=== PATIENT | male | born 1960 | race Caucasian/White ===

== ENCOUNTER 2022-11-14 08:59 | Emergency (ER) | payer OTHER ==
[~2022-11-14] VITALS: Ht 170.2 cm; Wt 69.8 kg
[2022-11-14 09:12] VITALS: BP 105/71
[2022-11-14] MEDS ORDERED: Desyrel150 MG PO (09:15)
[2022-11-14] MEDS ORDERED: IBUP600 PO (09:37)
== END 2022-11-14 10:01 | disposition home or self-care (01) ==
LOC: ER 08:59
DX: G56.03 Carpal tunnel syndrome, bilateral upper limbs (principal); Z79.899 Other long term (current) drug therapy
CPT/HCPCS: 96372; 99283-25; A9270; J1885

== ENCOUNTER 2023-06-19 01:42 | Observation (INO) | payer OTHER ==
[~2023-06-19] VITALS: Ht 170.2 cm; Wt 68.0 kg
[~2023-06-19 01:42] MED LIST: Desyrel150 MG PO; IBUP600 PO
[2023-06-19 02:40] LABS: BASOPHILS ABSOLUTE AUTO 0.05 K/mm3 (0.00-0.23); BASOPHILS PERCENT AUTO 1 % (0-2); EOSINOPHILS ABSOLUTE AUTO 0.22 K/mm3 (0.00-0.68); EOSINOPHILS PERCENT AUTO 3 % (0-6); Hematocrit 39.9 % (37.0-53.0); Hemoglobin 13.5 g/dL (13.5-17.5); IMMATURE GRAN ABSOLUTE AUTO 0.06 K/mm3 (0.00-0.10); IMMATURE GRAN PERCENT AUTO 1 % (0-1); LYMPHOCYTES ABSOLUTE AUTO 2.65 K/mm3 (0.84-5.20); LYMPHOCYTES PERCENT AUTO 30 % (21-46); MONOCYTES ABSOLUTE AUTO 0.92 K/mm3 (0.16-1.47); MONOCYTES PERCENT AUTO 10 % (4-13); Mean Corpuscular HGB 33.8 pg (26.0-34.0); Mean Corpuscular HGB Conc 33.8 g/dL (31.5-36.5); Mean Corpuscular Volume 100 fL (80-100); Mean Platelet Volume 10.6 fL (9.1-12.4); NEUTROPHILS ABSOLUTE AUTO 5.07 K/mm3 (1.96-9.15); NEUTROPHILS PERCENT AUTO 56 % (41-73); Platelet Count 258 K/mm3 (150-400); RDW Coefficient Variation 13.2 % (11.7-14.2); RDW Standard Deviation 48.3 fL (35.1-46.3); White Blood Cell Count 8.97 K/mm3 (4.00-11.30)
[2023-06-19 03:01] LABS: Source, Urine Clean Catch
[2023-06-19 03:13] LABS: Ethanol (Alcohol), Blood, Med 152 mg/dL; Salicylate 2.3 mg/dL (2.8-20.0)
[2023-06-19 03:14] LABS: Alanine Aminotransfer (ALT/SGP 51 U/L (12-78); Albumin, Blood 3.8 g/dL (3.4-5.0); Alk Phos 73 U/L (50-136); Anion Gap 3 mmol/L (6-16); Aspartate Aminotrans (AST/SGOT 36 U/L (12-37); Bilirubin, Total 0.2 mg/dL (0.1-1.0); Blood Urea Nitrogen 16 mg/dL (8-24); Bun/Creatinine Ratio 21.2 (12.0-20.0); CO2, Blood 30 mmol/L (21-32); Calcium, Blood 8.7 mg/dL (8.5-10.1); Chloride, Blood 112 mmol/L (98-108); Creatinine, Blood 0.75 mg/dL (0.60-1.20); Globulin, Blood 3.8 g/dL (2.2-4.0); Glomerular Filtration Rate 102 (60-); Glucose, Blood 97 mg/dL (70-99); Potassium, Blood 4.9 mmol/L (3.5-5.5); Sodium, Blood 145 mmol/L (136-145); Total Protein, Blood 7.6 g/dL (6.4-8.2)
[2023-06-19 03:16] LABS: Acetaminophen, Random <2.0 ug/mL (10.0-30.0)
[2023-06-19 03:26] LABS: Bilirubin, Urine Neg (Neg); Blood, Urine Neg (Neg); Glucose Qualitative, Urine Neg (Neg); Ketones, Urine Neg (Neg); Leukocyte Esterase, Urine Neg (Neg); Nitrite, Urine Neg (Neg); Protein, Urine Neg (Neg); Urobilinogen, Urine NORM (Normal)
[2023-06-19 03:39] LABS: U Amphetamine Screen Not Detected; U Barbituate Screen Not Detected; U Benzodiazapine Screen Not Detected; U Buprenorphine Screen Not Detected; U Cannabinoids Screen DETECTED; U Cocaine Screen Not Detected; U Methadone Screen Not Detected; U Methamphetamine Screen Not Detected; U Opiates Screen Not Detected; U Oxycodone Screen Not Detected; U Phencyclidine Screen Not Detected
[2023-06-19 03:40] LABS: Appearance, Urine Clear (Clear); Color, Urine Yellow (P-Yellow)
[2023-06-19 21:46] VITALS: BP 132/78
== END 2023-06-19 23:18 | disposition short-term general hospital (02) ==
LOC: ER 01:42 → EOR 01:43
PROVIDERS: ADMIT Emergency Medicine
DX: F33.3 Major depressive disorder, recurrent, severe with psychotic symptoms (principal); R45.851 Suicidal ideations; F10.10 Alcohol abuse, uncomplicated
CPT/HCPCS: 36415; 80053; 81003; 84443; 85025; 86592; 93005; 93010; 99285-25; A9270; G0378; G0480

== ENCOUNTER 2024-11-19 23:20 | Inpatient (IN) | payer OTHER ==
[~2024-11-19] VITALS: Ht 170.2 cm; Wt 60.5 kg
[2024-11-19] MEDS ORDERED: Midazolam HCl 1MG / ML 2ML Vial IV SCH (23:35)
[2024-11-19] MEDS ORDERED: LORazepam 2 MG/ML 1ML Injection IV ONE (23:50)
[2024-11-19 23:51] LABS: BASOPHILS ABSOLUTE AUTO 0.03 K/mm3 (0.00-0.23); BASOPHILS PERCENT AUTO 0 % (0-2); EOSINOPHILS ABSOLUTE AUTO 0.25 K/mm3 (0.00-0.68); EOSINOPHILS PERCENT AUTO 3 % (0-6); Hematocrit 37.1 % (37.0-53.0); Hemoglobin 11.4 g/dL (13.5-17.5); IMMATURE GRAN ABSOLUTE AUTO 0.05 K/mm3 (0.00-0.10); IMMATURE GRAN PERCENT AUTO 1 % (0-1); LYMPHOCYTES ABSOLUTE AUTO 2.32 K/mm3 (0.84-5.20); LYMPHOCYTES PERCENT AUTO 26 % (21-46); MONOCYTES ABSOLUTE AUTO 0.62 K/mm3 (0.16-1.47); MONOCYTES PERCENT AUTO 7 % (4-13); Mean Corpuscular HGB 35.6 pg (26.0-34.0); Mean Corpuscular HGB Conc 30.7 g/dL (31.5-36.5); Mean Corpuscular Volume 116 fL (80-100); Mean Platelet Volume 11.1 fL (9.1-12.4); NEUTROPHILS ABSOLUTE AUTO 5.68 K/mm3 (1.96-9.15); NEUTROPHILS PERCENT AUTO 64 % (41-73); Platelet Count 195 K/mm3 (150-400); RDW Coefficient Variation 17.2 % (11.7-14.2); RDW Standard Deviation 72.5 fL (35.1-46.3); White Blood Cell Count 8.95 K/mm3 (4.00-11.30)
[2024-11-19 23:56] LABS: Bicarbonate Venous 5.2 mmol/L (24.0-30.0); pH Blood Venous 6.83 (7.34-7.37)
[2024-11-19 23:57] LABS: Base Excess Venous -30.8 mmol/L
[2024-11-20] VITALS (23 sets, daily range): BP systolic 91–154; BP diastolic 50–111
[2024-11-20] MEDS ORDERED: LORazepam 2 MG/ML 1ML Injection IV ONE ×3 (00:05→23:55)
[2024-11-20] MEDS ORDERED: NS 1,000 ML IV SCH ×2 (00:10→23:55)
[2024-11-20] MEDS ORDERED: NS 1,000 ML IV ONE (00:16)
[2024-11-20 00:35] LABS: Albumin, Blood 3.5 g/dL (3.4-5.0); Albumin/Globulin Ratio 0.9 (0.8-1.8); Bilirubin, Total 0.9 mg/dL (0.1-1.0); Bun/Creatinine Ratio 11.4 (12.0-20.0); Calcium, Blood 9.2 mg/dL (8.5-10.1); Creatinine, Blood 1.32 mg/dL (0.60-1.20); Globulin, Blood 3.8 g/dL (2.2-4.0); Potassium, Blood 4.2 mmol/L (3.5-5.5); Total Protein, Blood 7.3 g/dL (6.4-8.2)
[2024-11-20] MEDS ORDERED: Sodium Bicarb 8.4% 1 MEQ/ML 50 ML Vial IV ONE (01:00)
[2024-11-20] MEDS ORDERED: Sodium Bicarb 8.4% Inj 100 MEQ in Sodium Chloride 0.45% 1,000 ML IV SCH (01:05)
[2024-11-20] MEDS ORDERED: Metoprolol Tartrate 1 MG/ML 5 ML VIAL IV ONE ×2 (02:35→05:05)
[2024-11-20] MEDS ORDERED: NS 250 ML IV ONE (02:40)
[2024-11-20] MEDS ORDERED: Ondansetron HCl 2 MG / ML 2ML Vial IV PRN (02:45)
[2024-11-20 03:20] LABS: BASOPHILS ABSOLUTE AUTO 0.02 K/mm3 (0.00-0.23); BASOPHILS PERCENT AUTO 0 % (0-2); EOSINOPHILS PERCENT AUTO 0 % (0-6); Hematocrit 31.9 % (37.0-53.0); Hemoglobin 10.4 g/dL (13.5-17.5); IMMATURE GRAN ABSOLUTE AUTO 0.02 K/mm3 (0.00-0.10); IMMATURE GRAN PERCENT AUTO 0 % (0-1); LYMPHOCYTES ABSOLUTE AUTO 0.35 K/mm3 (0.84-5.20); LYMPHOCYTES PERCENT AUTO 7 % (21-46); MONOCYTES ABSOLUTE AUTO 0.53 K/mm3 (0.16-1.47); MONOCYTES PERCENT AUTO 10 % (4-13); Mean Corpuscular HGB 35.7 pg (26.0-34.0); Mean Corpuscular HGB Conc 32.6 g/dL (31.5-36.5); Mean Platelet Volume 10.3 fL (9.1-12.4); NEUTROPHILS ABSOLUTE AUTO 4.29 K/mm3 (1.96-9.15); NEUTROPHILS PERCENT AUTO 82 % (41-73); Platelet Count 153 K/mm3 (150-400); RDW Standard Deviation 68.8 fL (35.1-46.3); Red Blood Cell Count 2.91 M/mm3 (4.30-5.90); White Blood Cell Count 5.21 K/mm3 (4.00-11.30)
[2024-11-20 03:22] LABS: Base Excess Venous -19.3 mmol/L; Bicarbonate Venous 11.4 mmol/L (24.0-30.0); PCO2 Venous 23.8 mmHg (38-42); pH Blood Venous 7.19 (7.34-7.37)
[2024-11-20 03:28] LABS: Mean Corpuscular Volume 110 fL (80-100)
[2024-11-20 03:57] LABS: Bilirubin, Total 1.1 mg/dL (0.1-1.0); Bun/Creatinine Ratio 14.1 (12.0-20.0); Creatinine, Blood 1.42 mg/dL (0.60-1.20); Potassium, Blood 3.7 mmol/L (3.5-5.5)
[2024-11-20 04:49] LABS: Source, Urine Clean Catch
[2024-11-20 04:58] LABS: Appearance, Urine Clear (Clear); Bilirubin, Urine Neg (Neg); Blood, Urine 3+ (Neg); Color, Urine Yellow (P-Yellow); Glucose Qualitative, Urine Neg (Neg); Ketones, Urine 3+ (Neg); Leukocyte Esterase, Urine Neg (Neg); Nitrite, Urine Neg (Neg); Protein, Urine 3+ (Neg); Specific Gravity, Urine 1.025 (1.003-1.022); Urobilinogen, Urine NORM (Normal)
[2024-11-20] MEDS ORDERED: ChlordiazePOXIDE 25 MG Cap PO PRN (05:00)
[2024-11-20] MEDS ORDERED: LORazepam 2 MG/ML 1ML Injection IV PRN (05:00)
[2024-11-20 05:06] LABS: Amorphous Light (0-Heavy); Bacteria Few /hpf; Calcium Oxalate Crystals Few /hpf; Hyaline Casts 0-2 /lpf (0-2); Red Blood Cells, Urine 0-2 /hpf (0-2); Squamous Epithelial Cells Few /hpf (Few); White Blood Cells, Urine 0-2 /hpf (0-5)
[2024-11-20 05:09] LABS: U Amphetamine Screen Not Detected; U Barbituate Screen Not Detected; U Benzodiazapine Screen Not Detected; U Buprenorphine Screen Not Detected; U Cannabinoids Screen DETECTED; U Cocaine Screen Not Detected; U Methadone Screen Not Detected; U Methamphetamine Screen Not Detected; U Opiates Screen Not Detected; U Oxycodone Screen Not Detected; U Phencyclidine Screen Not Detected
[2024-11-20] MEDS ORDERED: Midazolam HCl 1MG / ML 2ML Vial IV ONE (05:24)
--- NOTE | 2024-11-20 07:00 | NUR ---
ASSUME CARE: I have assumed care of this patient. During bedside shift report, pt's nasal cannula was titrated off to room air with due to and SpO2 of 100%. Pt's left wirst IV was found in bed, assumed to be inadvertantly or self removed by patient. Site was dressed with gauze and coban. Pt is awake and alert.
--- NOTE | 2024-11-20 07:18 | NUR ---
Shift summary Pt arrives to unit at approx 0200 am. Pt was tachypneic and restless w/ cpap mask on. Pt oriented x3. Pt is impulsive and requires frequent redirecting. Following commands. Pt has bicarb running at 150ml/hr. Pt on cpap on arrival. Lungs clear/ dim in the bases. Transistioned to nc and o2 titrated off. O2 sats >95% on room air. Pt was sinus tach rate of 120s on arrival to unit. Converted to afib w/ rvr. Provider notified and iv lopressor given x2. BP stable. Pt afebrile. Pt incontinent of bladder and bowel. Male wicking system placed. Pt had 5 large bowel movements, that were liquid. Rectal tube placed. Pt skin pale w/ scattered bruises on upper extremities. Blanchable area of redness to sacrum, photos in chart and provider notified. Pt has some aged bruises to r. ribs- sts he 'bangs in to things at home', denies falls. 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 Sts he drinks approx 1 pint of vodka daily, but thinks his last drink was 1 week ago. Pt is unreliable historian. Call light w/ in reach and bed alarm on. Plan of care ongoing.
[2024-11-20] MEDS ORDERED: Enoxaparin 40 MG/0.4 ML SYR SC SCH (09:00)
--- NOTE | 2024-11-20 13:00 | NUR ---
PROVIDER UPDATE: Dr Rivas notified of pt's CIWAs, PO fluid intake, and recent lactate level. No IV fluids at this time.
--- NOTE | 2024-11-20 17:19 | NUR ---
PROVIDER UPDATE: Pt burping frequently and spitting up small amounts of coffee ground emesis. When questioned further, pt reports he has had blood in his vomit and stool with "blood clots" for 2-[address] Rivas notified. See new orders.
[2024-11-20] MEDS ORDERED: Pantoprazole Sodium 40 MG Injection IV SCH (17:25)
[2024-11-20] MEDS ORDERED: Loperamide HCl 2 MG Cap PO PRN (17:25)
--- NOTE | 2024-11-20 18:08 | NUR ---
SHIFT SUMMARY: Joe has been cooperative and redirectable throughout the shift. He is alert and consistently oriented to person and place, intermittantly oriented to situation and month. Pt is impulsive, with bed alarm in place, and gets up to commode frequently. He has had multiple liquid stools throughout the day. Male pure wick and rectal tube were in place at beginning of shift, but were self removed by patient. Pt was given PRN zofran twice for nausea and retching. Joe was very tremulous early in the day before he was given Librium for CIWA of 16. When asked about his drinking habits, pt disclosed that he drinks 1-2 1/5ths of of hard liquor every 3-4 days. When RN asked what happens when he stops drinking pt stated, "I go into withdrawals" though he was unable to articulate the symptoms he experiences. CIWA has since been 7. Linens changed several times throughout the shift. Pt tolerating PO fluids well.
--- NOTE | 2024-11-20 19:20 | NUR ---
HOSPITALIST NOTIFIED OF FINGER STICK BLOOD SUGAR
[2024-11-20 20:27] LABS: Adenovirus F 40/41 Not Detected (NOT DETECT); Astrovirus Not Detected (NOT DETECT); Campylobacter Sp Not Detected (NOT DETECT); Cryptosporidium Not Detected (NOT DETECT); Cyclospora Cayetanensis Not Detected (NOT DETECT); E. Coli O157 Not Detected (NOT DETECT); Entamoeba Histolytica Not Detected (NOT DETECT); Enteroaggregative E. coli-EAEC Not Detected (NOT DETECT); Enteropathogenic E. coli-EPEC Not Detected (NOT DETECT); Enterotoxigenic E. coli-ETEC Not Detected (NOT DETECT); Giardia Lamblia Not Detected (NOT DETECT); Norovirus GI/GII Not Detected (NOT DETECT); Plesiomonas Shigelloides Not Detected (NOT DETECT); Rotavirus A Not Detected (NOT DETECT); Salmonella Sp Not Detected (NOT DETECT); Sapovirus Not Detected (NOT DETECT); Shiga Toxin-prod E. coli-STEC Not Detected (NOT DETECT); Shigella/Enteroin E. coli-EIEC Not Detected (NOT DETECT); Vibrio Cholerae Not Detected (NOT DETECT); Vibrio Sp Not Detected (NOT DETECT); Yersinia Enterocolitica Not Detected (NOT DETECT)
[2024-11-20 22:19] LABS: Hematocrit 26.4 % (37.0-53.0); Hemoglobin 9.5 g/dL (13.5-17.5); Mean Corpuscular HGB 35.6 pg (26.0-34.0); Mean Corpuscular Volume 99 fL (80-100); Mean Platelet Volume 10.6 fL (9.1-12.4); NRBC ABSOLUTE 0.03 K/mm3 (0.00-0.02); NRBC Auto 1.8 /100 WBC (0.0-0.2); Platelet Count 103 K/mm3 (150-400); RDW Coefficient Variation 15.3 % (11.7-14.2); RDW Standard Deviation 55.4 fL (35.1-46.3); Red Blood Cell Count 2.67 M/mm3 (4.30-5.90); White Blood Cell Count 1.65 K/mm3 (4.00-11.30)
[2024-11-20] MEDS ORDERED: Pantoprazole Sodium 40 MG Injection IV ONE (23:28)
[2024-11-21] VITALS (18 sets, daily range): BP systolic 46–138; BP diastolic 33–96
[2024-11-21] MEDS ORDERED: Insulin Regular 100 UNIT/ML 10ML Vial SC SCH
[2024-11-21 00:46] LABS: Base Excess Venous 16.3 mmol/L; Bicarbonate Venous 37.9 mmol/L (24.0-30.0); PCO2 Venous 38.4 mmHg (38-42)
[2024-11-21 00:57] LABS: Hematocrit 25.5 % (37.0-53.0)
[2024-11-21] MEDS ORDERED: dexmedeTOMIDine 100 ML IV SCH (01:10)
[2024-11-21 01:11] LABS: International Normalized Ratio 1.06; Prothrombin Time Results 11.3 Sec (9.7-11.5)
[2024-11-21 01:12] LABS: Albumin, Blood 2.2 g/dL (3.4-5.0); Albumin/Globulin Ratio 0.8 (0.8-1.8); Bun/Creatinine Ratio 16.1 (12.0-20.0); Calcium, Blood 7.9 mg/dL (8.5-10.1); Creatinine, Blood 0.99 mg/dL (0.60-1.20); Globulin, Blood 2.8 g/dL (2.2-4.0); Potassium, Blood 3.1 mmol/L (3.5-5.5)
[2024-11-21 01:34] LABS: Magnesium, Blood 1.8 mg/dL (1.6-2.4)
[2024-11-21] MEDS ORDERED: Potassium Chl 20MEQ/Water100ML 100 ML IV SCH (01:35)
[2024-11-21] MEDS ORDERED: NS 1,000 ML IV SCH ×2 (03:00→10:50)
[2024-11-21] MEDS ORDERED: Mag Sulfate 1 GM/D5% 100ML 100 ML IV STA (03:03)
[2024-11-21] MEDS ORDERED: Vasopressin 20 UNITS in NS 100 ML IV SCH (04:10)
[2024-11-21 04:14] LABS: Hematocrit 29.1 % (37.0-53.0); Hemoglobin 10.2 g/dL (13.5-17.5); Mean Corpuscular HGB 34.1 pg (26.0-34.0); Mean Corpuscular HGB Conc 35.1 g/dL (31.5-36.5); Mean Corpuscular Volume 97 fL (80-100); Mean Platelet Volume 11.3 fL (9.1-12.4); NRBC ABSOLUTE 0.03 K/mm3 (0.00-0.02); NRBC Auto 6.5 /100 WBC (0.0-0.2); RDW Coefficient Variation 16.2 % (11.7-14.2); RDW Standard Deviation 56.8 fL (35.1-46.3); Red Blood Cell Count 2.99 M/mm3 (4.30-5.90)
[2024-11-21 04:17] LABS: Platelet Count 68 K/mm3 (150-400); White Blood Cell Count 0.46 K/mm3 (4.00-11.30)
[2024-11-21 04:35] LABS: Albumin, Blood 2.1 g/dL (3.4-5.0); Albumin/Globulin Ratio 0.8 (0.8-1.8); Bilirubin, Total 0.9 mg/dL (0.1-1.0); Bun/Creatinine Ratio 15.1 (12.0-20.0); Creatinine, Blood 1.19 mg/dL (0.60-1.20); Globulin, Blood 2.8 g/dL (2.2-4.0); Potassium, Blood 3.3 mmol/L (3.5-5.5); Total Protein, Blood 4.9 g/dL (6.4-8.2)
[2024-11-21 05:13] LABS: BAND PERCENT MAN 42 % (0-8); BASOPHILS PERCENT MAN 0 % (0-2); EOSINOPHILS PERCENT MAN 2 % (0-6); LYMPHOCYTES ABSOLUTE MAN 0.09 K/mm3 (0.84-5.20); LYMPHOCYTES PERCENT MAN 20 % (21-46); METAMYELOCYTE ABSOLUTE MAN 0.02 K/mm3 (0.00-0.00); METAMYELOCYTE PERCENT MAN 6 % (0-0); MONOCYTES PERCENT MAN 2 % (4-13); MYELOCYTE PERCENT MAN 2 % (0-0); NEUTROPHILS ABSOLUTE MAN 0.31 K/mm3 (1.96-9.15); SEG NEUTROPHILS PERCENT MAN 26 % (41-73); TOTAL CELLS COUNTED 50
--- NOTE | 2024-11-21 05:17 | NUR ---
NURSING NOTE: AT AROUND 0000, THIS PT STARTED HAVING LARGE AMOUNTS OF COFFEE GROUND EMESIS. UPON DISCUSSION WITH DR HEART, AN NG TUBE WAS PUT IN TO DECOMPRESS THE STOMACH. AFTER THIS, PT BLOOD PRESSURE STARTED GETTING SOFTER. DR HEART TO BEDSIDE. 1 UN[address] OF [address]BC ORDERED AND CT OF ABDOMEN ORDERED. PT BECAME MORE ANXIOUS AND TACHYPNIC. LEVOPHED GTT ORDERED AND STARTED.
--- NOTE | 2024-11-21 05:26 | NUR ---
NURSE NOTE: AT AROUND 0400, THIS RN WAS ABOUT TO TAKE PT TO CT SCAN BUT BLOOD PRESSURE BECAME MORE UNSTABLE. LEVOPHED GTT MAX RATE THROUGH PERIPHERAL IV. DR HEART TO BEDSIDE TO PUT IN CENTRAL LINE. CENTRAL LINE PLACED IN RIGHT IJ AND CONFIRMED WITH XRAY. VASOPRESSIN GTT STARTED. PT INCREASINGLY AGITATED AND TACHYPNIC. PLAN IS TO INTUBATE PT ONCE BLOOD PRESSURE BECOMES MORE STABLE.
[2024-11-21] MEDS ORDERED: propofoL 100 ML IV PRN (05:35)
[2024-11-21] MEDS ORDERED: Piperacillin/Tazobactam Sod 4.5 GM in NS 100 ML IV SCH (05:44)
[2024-11-21] MEDS ORDERED: Vancomycin HCL 1,500 MG in NS 250 ML IV ONE (05:50)
[2024-11-21] MEDS ORDERED: Pantoprazole Sodium 40 MG Injection IV SCH (06:00)
[2024-11-21 06:10] LABS: Stool Occult Blood Guaiac 1 Pos (Neg)
[2024-11-21 06:30] LABS: Hematocrit 30.5 % (37.0-53.0); Hemoglobin 10.6 g/dL (13.5-17.5)
--- NOTE | 2024-11-21 06:53 | NUR ---
NURSING NOTE: THIS PT WAS INTUBATED AT 0532. THE FOLLOWING WAS GIVEN AT THE FOLLOWING TIMES: 2 MG ATIVAN AT 0528, 50MG KETAMINE AT 0528 AND 0530, 50 MCG OF PHENYLEPHERINE AT 0528, 0531, 0540, AND 0542. 50 MG OF ROCURONIUM AT 0530. ET TUBE IS 8.0 25 CM AT THE GUM. AFTER INTUBATION, PATIENT BLOOD PRESSURE CONTINUED TO DECREASE. CRASH CART OPENED AND 1 ML OF EPI WITH 9ML NS GIVEN VIA PUSH PER DR HEART AT 0553. EPI GTT ORDERED BUT NOT STARTED AT THIS TIME. LEVO GTT TITRATED NEEDED ANYWHERE FROM 15-30 DURING THIS TIME.
[2024-11-21] MEDS ORDERED: Rocuronium Bromide 10 MG/ML 5ML Injection IV ONE (06:59)
[2024-11-21] MEDS ORDERED: LORazepam 2 MG/ML 1ML Injection IV ONE (06:59)
[2024-11-21] MEDS ORDERED: Phenylephrine HCl 100 MCG/ML-NS 10MLSYR (1MG/10ML) IV ONE (06:59)
[2024-11-21] MEDS ORDERED: Ketamine HCl 100 MG / ML 5ML Vial IV ONE (06:59)
[2024-11-21] MEDS ORDERED: EPINEPhrine HCl 0.1 MG/ML STE Water 10ML SYR IV ONE (06:59)
[2024-11-21 07:11] LABS: Base Excess Venous 5.9 mmol/L; PCO2 Venous 47.3 mmHg (38-42); pH Blood Venous 7.42 (7.34-7.37)
[2024-11-21 07:51] LABS: Hematocrit 30.2 % (37.0-53.0); Hemoglobin 10.5 g/dL (13.5-17.5)
[2024-11-21] MEDS ORDERED: Cetylpyridinium Chloride 1 EA MISC MT SCH (08:00)
[2024-11-21] MEDS ORDERED: Pantoprazole Sodium 40 MG in NS 50 ML IV SCH (08:05)
[2024-11-21] MEDS ORDERED: NS 500 ML IV ONE (08:24)
[2024-11-21] MEDS ORDERED: Lactated Ringer's 1,000 ML IV ONE ×3 (08:35→08:36)
[2024-11-21 08:47] LABS: PCO2 Arterial 31.1 mmHg (35-45); PO2 Arterial 59.1 mmHg (80-100); pH Blood Arterial 7.53 (7.35-7.45)
[2024-11-21] MEDS ORDERED: Lactated Ringer's 1,000 ML IV SCH (09:00)
[2024-11-21] MEDS ORDERED: Calcium Chloride 10% 2,000 MG in NS 100 ML IV ONE (09:05)
[2024-11-21] MEDS ORDERED: NS 1,000 ML IV ONE (10:55)
[2024-11-21 12:00] LABS: Hematocrit 28.6 % (37.0-53.0); Mean Corpuscular HGB 34.6 pg (26.0-34.0); Mean Corpuscular Volume 99 fL (80-100); Mean Platelet Volume 11.1 fL (9.1-12.4); NRBC ABSOLUTE 0.04 K/mm3 (0.00-0.02); NRBC Auto 7.8 /100 WBC (0.0-0.2); RDW Coefficient Variation 17.8 % (11.7-14.2); RDW Standard Deviation 64.7 fL (35.1-46.3); Red Blood Cell Count 2.89 M/mm3 (4.30-5.90)
[2024-11-21] MEDS ORDERED: Thiamine HCl 100 MG in NS 50 ML IV SCH (12:00)
[2024-11-21] MEDS ORDERED: LORazepam 2 MG/ML 1ML Injection IV SCH (12:00)
[2024-11-21] MEDS ORDERED: Hydrogen Peroxide 1.5 % Solution MT SCH (12:00)
[2024-11-21] MEDS ORDERED: Folic Acid 1 MG in NS 50 ML IV SCH (12:00)
[2024-11-21 12:05] LABS: BASOPHILS PERCENT AUTO 0 % (0-2); EOSINOPHILS ABSOLUTE AUTO 0.01 K/mm3 (0.00-0.68); EOSINOPHILS PERCENT AUTO 3 % (0-6); IMMATURE GRAN PERCENT AUTO 0 % (0-1); LYMPHOCYTES ABSOLUTE AUTO 0.17 K/mm3 (0.84-5.20); LYMPHOCYTES PERCENT AUTO 45 % (21-46); MONOCYTES ABSOLUTE AUTO 0.01 K/mm3 (0.16-1.47); MONOCYTES PERCENT AUTO 3 % (4-13); NEUTROPHILS ABSOLUTE AUTO 0.19 K/mm3 (1.96-9.15); NEUTROPHILS PERCENT AUTO 50 % (41-73)
[2024-11-21 12:07] LABS: Platelet Count 40 K/mm3 (150-400); White Blood Cell Count 0.51 K/mm3 (4.00-11.30)
[2024-11-21 12:37] LABS: Albumin, Blood 1.7 g/dL (3.4-5.0); Albumin/Globulin Ratio 0.7 (0.8-1.8); Bilirubin, Total 0.9 mg/dL (0.1-1.0); Creatinine, Blood 1.47 mg/dL (0.60-1.20); Globulin, Blood 2.4 g/dL (2.2-4.0); Magnesium, Blood 1.7 mg/dL (1.6-2.4); Phosphorus, Blood 2.3 mg/dL (2.5-4.9); Potassium, Blood 4.2 mmol/L (3.5-5.5); Total Protein, Blood 4.1 g/dL (6.4-8.2)
[2024-11-21 12:49] LABS: PCO2 Arterial 30.4 mmHg (35-45); PO2 Arterial 104 mmHg (80-100); pH Blood Arterial 7.45 (7.35-7.45)
[2024-11-21] MEDS ORDERED: Acetaminophen 160MG / 5ML 10.15 UDC PT PRN (13:55)
--- NOTE | 2024-11-21 16:37 | NUR ---
SHIFT SUMMARY PT REMAINS INTUBATED AND SEDATED ON PROPOFOL GTT AT 60MCG/KG/MIN AND VASO AND LEVO GTT ON 28MCG/KG/MIN. AN ADDITIONAL 2L BOLUS ONE OF NS AND ONE OF LR GIVEN DURING MY SHIFT. PT RECEIVED A CT OF ABDOMEN, SEE CHART FOR MORE DETAILS. PT REMAINS FEBRILE WITH MAX TEMP APPROXIMATELY 103.6 AND CURRENT TEMP 100.6 WITH COOLING BLANKET UNDERNEATH PT LINED WITH A BED SHEET A SKIN BARRIER. FECAL CONTAINMENT DEVICE PLACED. PT REMAINS OLIGURIC WITH PROVIDER AWARE. WILL CONTINUE WITH THE PLAN OF CARE.
[2024-11-21] MEDS ORDERED: NS 500 ML IV SCH (18:30)
[2024-11-21] MEDS ORDERED: Vancomycin HCL 750 MG in NS 250 ML IV SCH (19:00)
[2024-11-22 02:44] VITALS: BP 105/60
[2024-11-22 03:18] LABS: PCO2 Arterial 24.4 mmHg (35-45); PO2 Arterial 85.2 mmHg (80-100)
[2024-11-22 03:19] LABS: pH Blood Arterial 7.18 (7.35-7.45)
[2024-11-22 03:51] LABS: Hematocrit 31.7 % (37.0-53.0); Mean Corpuscular HGB 35.7 pg (26.0-34.0); Mean Corpuscular HGB Conc 34.7 g/dL (31.5-36.5); Mean Corpuscular Volume 103 fL (80-100); NRBC ABSOLUTE 0.04 K/mm3 (0.00-0.02); NRBC Auto 5.8 /100 WBC (0.0-0.2); RDW Standard Deviation 72.3 fL (35.1-46.3); Red Blood Cell Count 3.08 M/mm3 (4.30-5.90)
[2024-11-22 03:53] LABS: BASOPHILS PERCENT AUTO 0 % (0-2); EOSINOPHILS ABSOLUTE AUTO 0.02 K/mm3 (0.00-0.68); EOSINOPHILS PERCENT AUTO 3 % (0-6); IMMATURE GRAN PERCENT AUTO 0 % (0-1); LYMPHOCYTES ABSOLUTE AUTO 0.17 K/mm3 (0.84-5.20); LYMPHOCYTES PERCENT AUTO 25 % (21-46); MONOCYTES ABSOLUTE AUTO 0.03 K/mm3 (0.16-1.47); MONOCYTES PERCENT AUTO 4 % (4-13); NEUTROPHILS ABSOLUTE AUTO 0.47 K/mm3 (1.96-9.15); NEUTROPHILS PERCENT AUTO 68 % (41-73)
[2024-11-22 03:56] LABS: Platelet Count 6 K/mm3 (150-400); White Blood Cell Count 0.69 K/mm3 (4.00-11.30)
[2024-11-22 04:04] LABS: International Normalized Ratio 1.63; Prothrombin Time Results 16.8 Sec (9.7-11.5)
[2024-11-22 04:11] LABS: Magnesium, Blood 2.3 mg/dL (1.6-2.4)
[2024-11-22 04:28] LABS: Albumin, Blood 1.3 g/dL (3.4-5.0); Albumin/Globulin Ratio 0.5 (0.8-1.8); Bilirubin, Total 0.9 mg/dL (0.1-1.0); Bun/Creatinine Ratio 15.1 (12.0-20.0); Calcium, Blood 7.5 mg/dL (8.5-10.1); Creatinine, Blood 1.99 mg/dL (0.60-1.20); Globulin, Blood 2.8 g/dL (2.2-4.0); Phosphorus, Blood 8.2 mg/dL (2.5-4.9); Potassium, Blood 5.2 mmol/L (3.5-5.5); Total Protein, Blood 4.1 g/dL (6.4-8.2)
[2024-11-22 04:48] VITALS: BP 97/51
[2024-11-22] MEDS ORDERED: Sodium Bicarb 8.4% 1 MEQ/ML 50 ML Vial IV ONE ×2 (04:50→11:30)
[2024-11-22] MEDS ORDERED: Sodium Bicarb 8.4% Inj 150 MEQ in Dextrose 5% 1,000 ML IV SCH (04:50)
[2024-11-22] MEDS ORDERED: NS 500 ML IV SCH (05:15)
[2024-11-22 05:55] VITALS: BP 85/40
[2024-11-22] MEDS ORDERED: Calcium Chloride 10% 2,000 MG in NS 100 ML IV ONE (06:00)
[2024-11-22] MEDS ORDERED: Phenylephrine HCl in 0.9% NaCl 250 ML IV SCH (06:00)
[2024-11-22 06:04] VITALS: BP 84/40
--- NOTE | 2024-11-22 06:56 | NUR ---
SHIFT SUMMARY: PT REMAINS INTUBATED AND SEDATED. PT MADE LITTLE TO NO VOLUNTARY MOVEMENTS THIS SHIFT, MAINLY OBTUNDED. PT PUPIL RESPONSE SLUGGISH. DOES NOT FOLLOW COMMANDS. NO GAG REFLEX NOTED, NO EYE MOVEMENT. VENT SETTINGS REMAIN UNCHANGED AC/VC 14/450/5/60%. LUNGS CLEAR, DIMINISHED T/O. HR 90S-100S. IRREG. SBP DEPENDENT ON VASOPRESSORS. DURING THIS SHIFT, PT PRESSORS INCREASED DUE TO DECLINING SBPS AND MAPS. PT MOTTLED UP TO CHEST. CRITICAL LABS CALLED TO DR. PAGE AND ORDERS PLACED PER MD. SEE EMAR. PT REMAINED AFEBRILE. ABD NONDISTENDED, SOFT, W/ HYPOACTIVE BOWEL TONES T/O. NG TUBE AND RECTAL TUBE REMAIN IN PLACE. DARK LIQUID STOOL DRAINING TO GRAVITY IN RECTAL TUBE. PT HAS TEMP VARGAS DRAINING TO GRAVITY, KELLY URINE IN BAG. PT HAS ART LINE TO R FEMORAL. CENTRAL LINE TO RIJ.
[2024-11-22] MEDS ORDERED: Dextrose 50% 50 ML Vial ONE (07:43)
[2024-11-22] MEDS ORDERED: Albumin (Human) 25gm/100ml 100 ML IV SCH (07:55)
[2024-11-22 07:59] VITALS: BP 136/58
[2024-11-22] MEDS ORDERED: Piperacillin/Tazobactam Sod 3.375 GM in NS 100 ML IV SCH (08:00)
[2024-11-22 08:39] LABS: Vancomycin, Random 21.3 ug/mL
[2024-11-22] MEDS ORDERED: Dextrose 50% 50 ML Vial IV PRN (08:48)
[2024-11-22] MEDS ORDERED: Dextrose 50% 50 ML Syringe IV PRN (08:50)
[2024-11-22] MEDS ORDERED: Sodium Bicarb 8.4% 1 MEQ/ML 50 ML Vial IV PRN (09:25)
[2024-11-22 10:00] LABS: PCO2 Arterial 21.9 mmHg (35-45); PO2 Arterial 93.4 mmHg (80-100)
[2024-11-22 10:01] LABS: pH Blood Arterial 7.08 (7.35-7.45)
[2024-11-22] MEDS ORDERED: Meropenem 1,000 MG in NS 100 ML IV SCH (10:04)
[2024-11-22 10:07] LABS: Bun/Creatinine Ratio 13.8 (12.0-20.0); Calcium, Blood 9.6 mg/dL (8.5-10.1); Creatinine, Blood 2.24 mg/dL (0.60-1.20); Potassium, Blood 5.8 mmol/L (3.5-5.5)
[2024-11-22] MEDS ORDERED: Sodium Bicarb 8.4% Inj 150 MEQ in Dextrose 5% 1,000 ML IV ONE (10:25)
--- NOTE | 2024-11-22 11:19 | NUR ---
PALLIATIVE CARE NOTE: SPOKE TO NAOMI VERDUZCO RN. SHE STATED PT MOTHER SANYA DIAZ IS . DAUGHTERS SPOUSE IS IN THE AND NO ONE KNOWS HOW TO GET IN TOUCH WITH HER. FRIEND LILLIANA RENATO IS ONLY CONTACT PT HAS AT THIS TIME. RETAIL GENERAL MANAGER IS WORKING ON FINDING FAMILY.
--- NOTE | 2024-11-22 13:45 | NUR ---
PALLIATIVE CARE NOTE: SPOKE TO DAUGHTER HELADIO RHODES ON THE PHONE. HELADIO STATES SHE HAS BEEN ESTRANGED FROM SUNDAY FOR OVER TEN YEARS. HELADIO IS WILLING TO BE CONTACT AND MAKE MEDICAL DECISIONS FOR SUNDAY. SHE STATES HE HAS NO OTHER FAMILY SHE IS AWARE OF. SHE STATES SHE SPOKE TO FRIEND LILLIANA WHO IS ON CONTACT LIST AND THEY AGREED SUNDAY WOULD NOT WANT TO BE ON A VENTILATOR OR CONTINUE TO BE ON ONE NOW. DISCUSSED PT MEDICAL STATUS AT THIS TIME. HELADIO STATES SHE WOULD LIKE SUNDAY REMOVED FROM THE VENTILATOR AND SHE WILL NOT BE ABLE TO BE PRESENT BUT WOULD LIKE TO BE NOTIFIED WHEN HE IS LIBERATED AND UPON . SHE STATES SHE HAS NO FUNDS FOR A AND WOULD LIKE THAT [facility] WITH [facility]. CALLED FRIEND LILLIANA. CONFIRMED HELADIO AND HIM TALKED AND ARE BOTH IN AGREEMENT WITH LIBERATING SUNDAY FROM THE VENTILATOR. LILLIANA AGREED TO PLAN TO LIBERATE FROM VENTILATOR. LILLIANA STATES HE CANNOT BE PRESENT BUT HE REQUESTS WE HAVE A HR ANALYST AT BEDSIDE. ASSURED LILLIANA HR ANALYST WOULD BE PRESENT. PT IS A "[employer]". LILLIANA STATED HE CALLED [facility] AND IS AWAITING A CALL BACK REGARDING BENEFITS. PROVIDED LILLIANA WITH THE [facility] BENEFITS LINE NUMBER. REQUESTED HE CALL BACK ONCE HE HAS MORE INFORMATION. LILLIANA STATED HE WOULD COME GET PT BELONGINGS WHEN HE CAN GET TO [place]. INFORMED HIM WE WOULD PLACE BELONGINGS IN A BAG WITH PT LABEL AND PLACE IN LOST AND FOUND. LILLIANA V/U. PROVIDED MORAL AND EMOTIONAL SUPPORT. NOTIFIED PRIMARY RN AND SPIRITUAL CARE OF POC.
--- NOTE | 2024-11-22 14:30 | NUR ---
Spiritual Care. After bein briefed by Palliative Care nurse Katheryn, this superintendent communications came to bedside and conferred with ICU staff. Will be available to given spiritual support to the Pt. at time of extubation.
--- NOTE | 2024-11-22 14:46 | NUR ---
"Spiritual Care | EOL This director biology is notified of the Pts. Passing at approx. 1435. Prayers of Commendation are made soon after. CHarge nurse and RT are present. Palliative Care Nurse Vijay is notified, and she verbalized that she would contact family as she has established rapport them. Since no home had been chosen, this director biology recommends recusing the body to the local home on rotation."
--- NOTE | 2024-11-22 14:49 | NUR ---
PALLIATIVE CARE NOTE: NOTIFIED BY BRIDGE IRONWORKER PT PASSED PRIOR TO LIBERATION OF VENTILATOR. CALLED DAUGHTER HELADIO AND THEN CALLED FRIEND LILLIANA TO NOTIFY THEM PT . LILLIANA STATED HE IS GOING TO HAVE HELADIO CALL [facility] TO START PROCESS WITH [facility]. CONDOLENCES GIVEN TO BOTH HELADIO AND LILLIANA.
[2024-11-22 15:08] LABS: Bun/Creatinine Ratio 13.7 (12.0-20.0); Creatinine, Blood 2.26 mg/dL (0.60-1.20); Potassium, Blood 6.1 mmol/L (3.5-5.5)
[2024-11-22 15:09] LABS: Calcium, Blood 7.2 mg/dL (8.5-10.1)
--- NOTE | 2024-11-22 15:24 | NUR ---
TOD 1438 PT PASSED AT 1438. THE DAUGHTER AND THE FRIEND LISTED IN THE CHART HAD AGREED TO GO COMFORT AND TAKE THE PT OFF THE VENTILATOR. PT THEN WENT INTO A WIDE QRS COMPLEX THEN INTO ASYSTOLE. MEDICAL TEAM NOTIFIED. FAMILY NOTIFIED. PT BELONGINGS WILL BE PICKED UP BY THE FRIEND LILLIANA.
--- NOTE | 2024-11-23 13:35 | NUR ---
RECIEVED A CALL FROM PATIENTS FRIEND LILLIANA GROSS [phone]. HE REPORTED THAT HE WAS TO DRUM TENDER LUIS BELONGINGS. DISCUSSED WITH ICU SMALL ENGINE SPECIALIST. THEY WERE AWARE OF THIS AND HAD [employer] BELONGINGS READY. LILLIANA ARRIVED AND PICKED UP THREE BAGS (PANTS, JACKET, SHOES, AND WALLET.)
== END 2024-11-22 16:51 | DRG 208 ==
LOC: ER 23:20 → ERHOLD 11-20 00:13 → ICUE 11-20 00:13
PROVIDERS: Emergency Medicine; Family Medicine; Internal Medicine; Internal Medicine Critical Care Medicine; Internal Medicine Nephrology; Student in an Organized Health Care Education/Training Program; ADMIT Internal Medicine
PROC: 5A09357 Assistance with Respiratory Ventilation, Less than 24 Consecutive Hours, Continuous Positive Airway Pressure (ICD-10-PCS; 2024-11-19)
PROC: HZ2ZZZZ Detoxification Services for Substance Abuse Treatment (ICD-10-PCS; 2024-11-20)
PROC: 5A1945Z Respiratory Ventilation, 24-96 Consecutive Hours (ICD-10-PCS; principal; 2024-11-21)
PROC: 0BH17EZ Insertion of Endotracheal Airway into Trachea, Via Natural or Artificial Opening (ICD-10-PCS; 2024-11-21)
PROC: 3E03329 Introduction of Other Anti-infective into Peripheral Vein, Percutaneous Approach (ICD-10-PCS; 2024-11-21)
PROC: 4A133R1 Monitoring of Arterial Saturation, Peripheral, Percutaneous Approach (ICD-10-PCS; 2024-11-21)
PROC: 3E033XZ Introduction of Vasopressor into Peripheral Vein, Percutaneous Approach (ICD-10-PCS; 2024-11-21)
PROC: 3E043XZ Introduction of Vasopressor into Central Vein, Percutaneous Approach (ICD-10-PCS; 2024-11-21)
PROC: 02HV33Z Insertion of Infusion Device into Superior Vena Cava, Percutaneous Approach (ICD-10-PCS; 2024-11-21)
PROC: 30233N1 Transfusion of Nonautologous Red Blood Cells into Peripheral Vein, Percutaneous Approach (ICD-10-PCS; 2024-11-21)
PROC: 04HY32Z Insertion of Monitoring Device into Lower Artery, Percutaneous Approach (ICD-10-PCS; 2024-11-22)
PROC: 4A133B1 Monitoring of Arterial Pressure, Peripheral, Percutaneous Approach (ICD-10-PCS; 2024-11-22)
PROC: 4A133J1 Monitoring of Arterial Pulse, Peripheral, Percutaneous Approach (ICD-10-PCS; 2024-11-22)
PROC: 30233R1 Transfusion of Nonautologous Platelets into Peripheral Vein, Percutaneous Approach (ICD-10-PCS; 2024-11-22)
PROC: 30233J1 Transfusion of Nonautologous Serum Albumin into Peripheral Vein, Percutaneous Approach (ICD-10-PCS; 2024-11-22)
DX: J96.01 Acute respiratory failure with hypoxia (principal); A41.50 Gram-negative sepsis, unspecified; R65.21 Severe sepsis with septic shock; J18.9 Pneumonia, unspecified organism; N17.9 Acute kidney failure, unspecified; E87.21 Acute metabolic acidosis; F10.939 Alcohol use, unspecified with withdrawal, unspecified; A09 Infectious gastroenteritis and colitis, unspecified; D61.818 Other pancytopenia; E87.1 Hypo-osmolality and hyponatremia; E87.3 Alkalosis; K92.2 Gastrointestinal hemorrhage, unspecified; Z66 Do not resuscitate; N18.9 Chronic kidney disease, unspecified; K74.60 Unspecified cirrhosis of liver; F15.10 Other stimulant abuse, uncomplicated; F32.A Depression, unspecified; E87.6 Hypokalemia; E87.8 Other disorders of electrolyte and fluid balance, not elsewhere classified; E88.09 Other disorders of plasma-protein metabolism, not elsewhere classified; E16.2 Hypoglycemia, unspecified; E87.5 Hyperkalemia; I48.91 Unspecified atrial fibrillation; E83.39 Other disorders of phosphorus metabolism; E83.51 Hypocalcemia; Z78.1 Physical restraint status
CPT/HCPCS: 31500; 36415; 36430; 36556; 36620; 70450; 71045; 71260; 74177; 80048; 80053; 80202; 81001; 82140; 82271; 82272; 82330; 82435; 82550; 82803; 82947; 83605; 83615; 83690; 83735; 83880; 84100; 84132; 84295; 84300; 84484; 85014; 85018; 85025; 85027; 85379; 85610; 85730; 86850; 86900; 86901; 86920; 87040; 87077; 87186; 87507; 93005; 93010; 93306; 94002; 94003; 94660; 94762; 96374; 96375; 99285-25; A9270; C1751; J0171; J1650; J1815; J2060; J2185; J2250; J2371; J2405; J2470; J2543; J2704; J3370; J3411; J3475; J3480; J7030; J7040; J7050; J7060; J7070; J7120; J7799; P9016; P9035; P9047; Q9967